=== PATIENT | male | born 1990 | race Two or more races ===

== ENCOUNTER 2016-12-10 15:34 | Emergency (ER) | payer BC, MEDICAID ==
[2016-12-10 15:40] VITALS: BP 108/62
--- NOTE | 2016-12-10 15:49 | UC ---
Skin Complaint HPI - HPI Summary HPI Summary: 25 YEAR OLD MALE PRESENTS WITH COMPLAINS OF LARGE LESION ON HIS LEFT EAR LOBE. - History of Current Complaint Chief Complaint: UCEar Time Seen by Provider: 12/10/16 15:44 Stated Complaint: EAR LOBE RED - Allergy/Home Medications Allergies/Adverse Reactions: Allergies Allergy/AdvReac Type Severity Reaction Status Date / Time Amoxicillin Allergy Rash Verified 12/10/16 15:41 Penicillins [PCN] Allergy Rash Verified 12/10/16 15:41 Review of Systems Constitutional: Negative Skin: Other - LESION ON LEFT EAR LOBE. Eyes: Negative ENT: Negative Respiratory: Negative Cardiovascular: Negative Gastrointestinal: Negative Genitourinary: Negative Motor: Negative Neurovascular: Negative Musculoskeletal: Negative Neurological: Negative Psychological: Negative All Other Systems Reviewed And Are Negative: Yes PMH/Surg Hx/FS Hx/Imm Hx Previously Healthy: Yes - Surgical History Surgical History: Yes Surgery Procedure, Year, and Place: wisdom teeth extraction - Social History Alcohol Use: Occasionally Substance Use Type: None Smoking Status (MU): Never Smoked Tobacco Physical Exam Triage Information Reviewed: Yes Appearance: Well-Appearing Vital Signs: Initial Vital Signs Temp 37.1 C 12/10/16 15:36 Pulse 63 12/10/16 15:36 Resp 18 12/10/16 15:36 BP 108/62 12/10/16 15:36 Pulse Ox 100 12/10/16 15:36 Eye Exam: Normal ENT Exam: Normal Dental Exam: Normal Neck exam: Normal Neck: Positive: 1 Respiratory Exam: Normal Cardiovascular Exam: Normal Abdominal Exam: Normal Musculoskeletal Exam: Normal Neurological Exam: Normal Psychological Exam: Normal Skin: Positive: Other - LARGE LESION ON LEFT EAR LOBE Course/Dx - Diagnoses Provider Diagnoses: LARGE LESION ON LEFT EAR LOBE Discharge - Discharge Plan Condition: Stable Disposition: HOME Prescriptions: DOXYcycline CAP(*) [DOXYcycline 100MG CAP(*)] 100 mg PO BID #[id number] cap Patient Education Materials: Abscess (ED) Referrals: Loulou Campos [Medical Doctor] - Danyelle Edwards MD [Primary Care Provider] - If Needed
== END 2016-12-10 16:11 | disposition home or self-care (01) ==
LOC: UCEAST 15:34
DX: L98.9 Disorder of the skin and subcutaneous tissue, unspecified (principal); Z88.0 Allergy status to penicillin
CPT/HCPCS: 99202; G0463